=== PATIENT | male | born 1960 | race Two or more races ===

== ENCOUNTER → 2019-03-14 15:28 | Emergency (ER) | payer MEDICAID ==
[~2019-03-14 15:28] MED LIST: NS 0.9% 1000 ML** 1,000 ML IV ONE
--- NOTE | 2019-03-14 15:42 | ED ---
Substance Abuse/Use - HPI Summary HPI Summary: A 58 y/o M brought in by ambulance presents to ED s/p smoking "something" approx 1430. Pt says he thought it was spice, but it wasn't, it was very strong. At bedside, he is an unreliable narrator, but denies CP, abd pain. He says it felt harder to keep coming back. Per EMS: Pt's blood pressure was fluctuating en route--the lower was 70s systolic; he was anxious. PMHx: HTN, takes lisinopril. - History Of Current Complaint Stated Complaint: POSS OD PER EMS Hx Obtained From: Patient, EMS, Medical Records Onset/Duration of Drug/ETOH Abuse: Hours - CLINICAL PROGRAM DIRECTOR Ingestion History: Type/Name Of Drug - unknown Overdose Characteristics: Oral - smoked Severity Initially: Moderate Severity Currently: Mild Character: Anxious Associated Signs And Symptoms: Intentional Ingestion, Other: - pos: anxious, hypotensive. neg: CP, abd pain - Allergies/Home Medications Allergies/Adverse Reactions: Allergies Allergy/AdvReac Type Severity Reaction Status Date / Time No Known Allergies Allergy Verified 03/14/19 15:37 Home Medications: Home Medications NK [No Home Medications Reported] 03/14/19 [History Confirmed 03/14/19] PMH/Surg Hx/FS Hx/Imm Hx Previously Healthy: No Cardiovascular History: Reports: Hx Hypertension Opthamlomology History: Denies: Hx Legally Blind Neurological History: Reports: Hx Seizures Psychiatric History: Reports: Hx Substance Abuse Infectious Disease History: No Infectious Disease History: Denies: Traveled Outside the [place] in Last 30 Days - Social History Occupation: Unemployed Lives: Alone Hx Substance Use: Yes Substance Use Type: Reports: Marijuana Substance Use Comment - Amount & Last Used: spice Review of Systems Positive: Other - pos: substance abuse Positive: Other - pos: hypotensive. Negative: Chest Pain Negative: Abdominal Pain Positive: Anxious All Other Systems Reviewed And Are Negative: Yes Physical Exam - Summary Physical Exam Summary: VITAL SIGNS: Reviewed. GENERAL: Patient is a well-developed and nourished MALE who is lying comfortable in the stretcher. Patient is not in any acute respiratory distress. HEAD AND FACE: No signs of trauma. No ecchymosis, hematomas or skull depressions. No sinus tenderness. EYES: PERRLA, EOMI x 2, No injected conjunctiva, no nystagmus. EARS: Hearing grossly intact. Ear canals and tympanic membranes are within normal limits. MOUTH: Oropharynx within normal limits. NECK: Supple, trachea is midline, no adenopathy, no JVD, no carotid bruit, no c- spine tenderness, neck with full ROM. CHEST: Symmetric, no tenderness at palpation LUNGS: Clear to auscultation bilaterally. No wheezing or crackles. CVS: Regular rate and rhythm, S1 and S2 present, no murmurs or gallops appreciated. ABDOMEN: Soft, non-tender. No signs of distention. No rebound, no guarding, and no masses palpated. Bowel sounds are normal. EXTREMITIES: FROM in all major joints, no edema, no cyanosis or clubbing. NEURO: Alert and oriented x 3. No acute neurological deficits. Speech is normal and follows commands. SKIN: Dry and warm Triage Information Reviewed: Yes Vital Signs On Initial Exam: Initial Vitals Temp Pulse Resp BP Pulse Ox 96.4 F 94 18 97/64 95 03/14/19 15:34 03/14/19 15:34 03/14/19 15:34 03/14/19 15:34 03/14/19 15:34 Vital Signs Reviewed: Yes Diagnostics - Vital Signs Vital Signs Temp Pulse Resp BP Pulse Ox 03/14/19 15:34 96.4 F 94 18 97/64 95 - Laboratory Lab Statement: Any lab studies that have been ordered have been reviewed, and results considered in the medical decision making process. Re-Evaluation - Re-Evaluation 1 Re-Evaluation Time: 15:55 Change: Unchanged Comment: Pt refusing his CXR. He's requesting to leave AMA. Course/Dx - Course Assessment/Plan: Patient is a 58-year-old male presents to the emergency department via ambulance after the patient reported that he smokes substance which he thought it was a spice. The patient did not feel well, had an episode of shortness of breath therefore he decided to come to the emergency department. The physical exam basically normal. The patient is alert and oriented 3 and he doesnt appear to be under any implants. In the EMS ride and was reported the patient was hypotensive. In the ED the patient s blood pressures started and 97% 64 and after giving 200 cc of fluids and the blood pressure is 125/79. He reports that he is feeling better therefore he wants to go home. I explained to the patient that we need to some workup however the patient refused. The patient reports that he was sensitive medical advice. I extensively discussed with the patient the benefits and risk of leaving AMA. I also discussed the alternatives to leaving AMA, however, the patient still insist to leave the hospital AMA. The patient is clinically sober, free from distracting injury, appears to have intact insight and judgment and reason and in my opinion has the capacity to make decisions. Patient has full capacity and is cognitively intact. The patient presents with SOB, I have explained that I am concerned with Hypoxia, GA, and may represent a life threatening condition- . The patient verbalizes the understanding of my concerns. I have also explained the results of the labs and even though they are (normal or abnormal) . The primary nurse and the charge nurse also strongly recommended that the patient should not leave AMA. Patient understands the risk of leaving AMA, which includes but is not restricted to . Patient signed the AMA form. Patient was also advised to return to ED if he changes his mind or if the symptoms worsen or other symptoms appear. Patient understands and agrees. Again , I discussed all the findings and test results with the patient. Patient was instructed to return to the emergency room immediately if any of the symptoms return or worsens. Plan of care was discussed with the patient and understands and agrees. All questions were answered at patient satisfaction. There were no further complaints or concerns. Patient signed AMA and he was discharged AMA. Patient was also advised to return to ED if he changes his mind or if the symptoms worsen or other symptoms appear. Patient understands and agrees. Again , I discussed all the findings and test results with the patient. Patient was instructed to return to the emergency room immediately if any of the symptoms return or worsens. Plan of care was discussed with the patient and understands and agrees. All questions were answered at patient satisfaction. There were no further complaints or concerns. Patient signed AMA and he was discharged AMA. - Diagnoses Provider Diagnoses: SOB (shortness of breath), Hypotension Discharge - Sign-Out/Discharge Documenting (check all that apply): Patient Departure - AMA Patient Received Moderate/Deep Sedation with Procedure: No - Discharge Plan Condition: Stable Disposition: AGAINST MEDICAL ADVICE - Billing Disposition and Condition Condition: STABLE Disposition: Against Medical Advice - Attestation Statements Document Initiated by Scribe: Yes Documenting Scribe: Yovani Aquino Provider For Whom Scribe is Documenting (Include Credential): Dr. Xander Daniels MD Scribe Attestation: I, Yovani Aquino, scribed for Dr. Xander Daniels MD on 03/14/19 at 1842. Scribe Documentation Reviewed: Yes Provider Attestation: The documentation as recorded by the Yovani brennan accurately reflects the service I personally performed and the decisions made by me, Dr. Xander Daniels MD Status of Scribe Document: Viewed
[2019-03-14 16:01] VITALS: BP 125/79
== END | disposition left against medical advice (07) ==
LOC: ED 15:28
DX: I10 Essential (primary) hypertension (principal); R06.02 Shortness of breath; Z79.899 Other long term (current) drug therapy
CPT/HCPCS: 99282

== ENCOUNTER 2019-06-01 20:54 | Emergency (ER) | payer MEDICAID ==
[2019-06-01] MEDS ORDERED: Metoclopramide IV* 5 MG/ML 2 ML VIAL IV SLOW PU ONE (21:21)
[2019-06-01] MEDS ORDERED: LORazepam INJ* 2 MG/ML 1 ML VIAL IV PUSH ONE (21:22)
[2019-06-01] MEDS ORDERED: NS 0.9% 1000 ML** 1,000 ML IV ONE (21:22)
[2019-06-01] MEDS ORDERED: Lorazepam PYXIS KEY PRN (21:22)
--- NOTE | 2019-06-01 21:26 | ED ---
Substance Abuse/Use - HPI Summary HPI Summary: Patient is a 58 year old M presenting to [facility] with a chief complaint of vomiting due to substance abuse, smoking spice, at 2000 today, 06/01/19. Patient reports that he was returning from a trip to [place] to find his brother where he could not find him prompting his return when he bought spice and smoked it in his car on the side of the street. Patient reports that he then threw up out of the window and then all over his car as he was driving when he saw people who called the EMS. Patient reports nausea and dizziness. Patient takes medications for seizures. Symptoms aggravated by nothing. Symptoms alleviated by nothing. - History Of Current Complaint Chief Complaint: EDSubstanceAbuse Stated Complaint: "NAUSEA/VOMITING PER EMS" Time Seen by Provider: 06/01/19 21:10 Hx Obtained From: Patient Onset/Duration of Drug/ETOH Abuse: Hours - 1-2 Aggravating Factor(s): Nothing Alleviating Factor(s): Nothing Associated Signs And Symptoms: Nausea, Vomiting, Other: - dizziness - Allergies/Home Medications Allergies/Adverse Reactions: Allergies Allergy/AdvReac Type Severity Reaction Status Date / Time No Known Allergies Allergy Verified 03/14/19 15:37 Home Medications: Home Medications Lisinopril 20 mg PO DAILY WITH MEAL 06/01/19 [History Confirmed 06/01/19] PMH/Surg Hx/FS Hx/Imm Hx Endocrine/Hematology History: Denies: Hx Diabetes Cardiovascular History: Reports: Hx Hypertension Sensory History: Denies: Hx Legally Blind Opthamlomology History: Denies: Hx Legally Blind Neurological History: Reports: Hx Seizures Psychiatric History: Reports: Hx Substance Abuse - Surgical History Surgery Procedure, Year, and Place: right knee. left shoulder Infectious Disease History: No Infectious Disease History: Denies: Traveled Outside the [place] in Last 30 Days - Family History Known Family History: Negative: Diabetes, Respiratory Disease - Social History Alcohol Use: Daily Hx Substance Use: Yes Substance Use Type: Reports: Marijuana Substance Use Comment - Amount & Last Used: spice today, marijuana as much as I can per pt Hx Tobacco Use: Yes Smoking Status (MU): Light Every Day Tobacco Smoker Review of Systems Positive: Other - dizziness Positive: Vomiting, Nausea All Other Systems Reviewed And Are Negative: Yes Physical Exam - Summary Physical Exam Summary: VITAL SIGNS: Reviewed. GENERAL: Patient is a well-developed and nourished MALE who is lying comfortable in the stretcher. Patient is not in any acute respiratory distress. HEAD AND FACE: No signs of trauma. No ecchymosis, hematomas or skull depressions. No sinus tenderness. EYES: PERRLA, EOMI x 2, No injected conjunctiva, no nystagmus. EARS: Hearing grossly intact. Ear canals and tympanic membranes are within normal limits. MOUTH: Oropharynx within normal limits. NECK: Supple, trachea is midline, no adenopathy, no JVD, no carotid bruit, no c- spine tenderness, neck with full ROM CHEST: Symmetric, no tenderness at palpation LUNGS: Clear to auscultation bilaterally. No wheezing or crackles. CVS: Regular rate and rhythm, S1 and S2 present, no murmurs or gallops appreciated. ABDOMEN: Soft, non-tender. No signs of distention. No rebound no guarding, and no masses palpated. Bowel sounds are normal. EXTREMITIES: FROM in all major joints, no edema, no cyanosis or clubbing. NEURO: Alert and oriented x 3. No acute neurological deficits. Speech is normal and follows commands. SKIN: Dry and warm Triage Information Reviewed: Yes Vital Signs On Initial Exam: Initial Vitals Temp Pulse Resp BP Pulse Ox 98.1 F 99 18 97/64 93 06/01/19 21:03 06/01/19 21:03 06/01/19 21:03 06/01/19 21:03 06/01/19 21:03 Vital Signs Reviewed: Yes Diagnostics - Vital Signs Vital Signs Temp Pulse Resp BP Pulse Ox 06/01/19 21:03 98.1 F 99 18 97/64 93 - Laboratory Lab Statement: Any lab studies that have been ordered have been reviewed, and results considered in the medical decision making process. Course/Dx - Course Course Of Treatment: Patient is a 58 year old M presenting to [facility] with a chief complaint of vomiting due to substance abuse, smoking spice, at 1999 today , 06/01/19. Patient smoked spice in his car on the side of the street when he vomited. Patient reports nausea and dizziness. Physical exam reveals no abnormalities. Patient was given Lorazepam 1 mg IV, Metoclopramide Hcl 10 mg IV , and saline in the ED. Physician discussed discharge with patient who agrees to discharge. Patient will be discharged. Patient will follow up with primary care provider within 3 days. - Diagnoses Provider Diagnoses: Substance abuse Discharge - Sign-Out/Discharge Documenting (check all that apply): Patient Departure - discharge Patient Received Moderate/Deep Sedation with Procedure: No - Discharge Plan Condition: Stable Disposition: HOME Patient Education Materials: Cannabis Abuse (ED) Referrals: [facility] [place]] - 3 Days Additional Instructions: Follow up with primary care provider within 3 days. PLEASE RETURN TO THE ED IMMEDIATELY FOR WORSENING OR CONCERNING SYMPTOMS. - Attestation Statements Document Initiated by Scribe: Yes Documenting Scribe: Nayla Ibanez Provider For Whom Scribe is Documenting (Include Credential): Rodriguez Cedeño MD Scribe Attestation: Nayla Calderon, scribed for Rodriguez Cedeño MD on 06/02/19 at 0440. Status of Scribe Document: Ready
[2019-06-01] MEDS ORDERED: Lorazepam PYXIS KEY ONE (21:31)
[2019-06-02 00:07] VITALS: BP 123/75
== END 2019-06-02 00:05 | disposition home or self-care (01) ==
LOC: ED 20:54
DX: F19.10 Other psychoactive substance abuse, uncomplicated (principal); I10 Essential (primary) hypertension; F17.210 Nicotine dependence, cigarettes, uncomplicated; Z79.899 Other long term (current) drug therapy
CPT/HCPCS: 96361; 96374; 96375; 99282; J2060; J2765